=== PATIENT | male | born 1960 | race Hispanic/Latino ===

== ENCOUNTER 2021-01-11 17:38 | Inpatient (IN) | payer OTHER ==
[2021-01-11 18:27] LABS: ALT (SGPT) 39 U/L (8-55); Albumin 3.5 g/dL (3.5-5.0); Alkaline Phosphatase 83 U/L (40-110); Anion Gap 21 mmol/L (10-20); BUN (Urea Nitrogen) 40 mg/dL (8.4-25.7); Bilirubin, Total 1.1 mg/dL (0.2-1.2); Calc. Creatinine Clearance 0 mL/min (70-130); Calcium 7.6 mg/dL (7.8-10.44); Carbon Dioxide 19 mmol/L (22-29); Chloride 94 mmol/L (98-107); Globulin 2.9 g/dL (2.4-3.5); Glucose 132 mg/dL (70-105); Hemoglobin 14.9 g/dL (13.5-17.5); Mean Corpuscular HGB CONC 34.7 g/dL (32.0-36.0); Mean Corpuscular Hemoglobin 28.4 pg (27.0-33.0); Mean Corpuscular Volume 81.9 fl (81.2-95.1); Mean Platelet Volume 11.7 fl (7.4-10.4); Platelet Count 156 10x3/uL (150-450); Potassium 4.1 mmol/L (3.5-5.1); Protein, Total 6.4 g/dL (6.0-8.3); RBC Distribution Width 12.6 % (11.5-14.5); Red Blood Cell (RBC) Count 5.24 10x6/uL (4.32-5.72); Sodium 130 mmol/L (136-145); White Blood Cell (WBC) Count 1.4 10x3/uL (3.5-10.5)
[2021-01-11] MEDS ORDERED: Ventolin HFA Inhaler 60 PUFF INHALER ONE (18:38)
[2021-01-11 18:39] LABS: AST (SGOT) 68 U/L (5-34)
[2021-01-11 19:51] LABS: Band 12 % (5-11); Lymphocytes 25 % (21-51); Monocytes 4 % (0-10); Reactive Lymphocytes 2 % (0-10)
[2021-01-11 19:52] LABS: Neutrophil 57 % (42-75)
[2021-01-11 19:53] LABS: Dohle Bodies SLIGHT; Toxic Granulation SLIGHT; Vacuoles SLIGHT
[2021-01-11 19:54] LABS: Platelet Morphology Comment Appears Adequate; RBC Morphology Normal; Reflex for Review?? YES
[2021-01-11 20:12] LABS: ALT (SGPT) 35 U/L (8-55); AST (SGOT) 58 U/L (5-34); Albumin 3.3 g/dL (3.5-5.0); Alkaline Phosphatase 76 U/L (40-110); Anion Gap 17 mmol/L (10-20); BUN (Urea Nitrogen) 40 mg/dL (8.4-25.7); Bilirubin, Total 1.1 mg/dL (0.2-1.2); Calc. Creatinine Clearance 0 mL/min (70-130); Calcium 8.2 mg/dL (7.8-10.44); Carbon Dioxide 20 mmol/L (22-29); Chloride 92 mmol/L (98-107); Globulin 3.4 g/dL (2.4-3.5); Glucose 118 mg/dL (70-105); Potassium 3.2 mmol/L (3.5-5.1); Protein, Total 6.7 g/dL (6.0-8.3); Sodium 126 mmol/L (136-145)
[2021-01-11] MEDS ORDERED: Guaifenesin DM 100-10/5 ML UDCUP PO PRN (20:23)
[2021-01-11] MEDS ORDERED: Dextrose 50% Abboject 50 ML SYRINGE SLOW IVP PRN (20:23)
[2021-01-11] MEDS ORDERED: Acetaminophen 325 MG TAB PO PRN (20:23)
[2021-01-11] MEDS ORDERED: Dextrose 5% in Water 1,000 ML IV PRN (20:23)
[2021-01-11] MEDS ORDERED: Dexamethasone 4 mg/ml Vial SLOW IVP SCH (20:30)
[2021-01-11] MEDS ORDERED: Sodium Chloride 0.9% 1,000 ML IV SCH (20:45)
[2021-01-11 21:24] LABS: Lactic Acid 3.7 mmol/L (0.5-2.2)
[2021-01-11] MEDS ORDERED: Potassium Chloride 20 MEQ TAB PO SCH (22:45)
[2021-01-11 22:57] LABS: Lactic Acid 3.8 mmol/L (0.5-2.2)
[2021-01-11] MEDS ORDERED: Cefepime 1 GM in Sodium Chloride 0.9% 100 ML IVPB SCH (23:45)
[2021-01-12] MEDS: Nicotine 21 MG PATCH TD SCH ×2 (01:10→21:53)
[2021-01-12] MEDS: Lantus 1000 UNITS/10 ML VIAL SC SCH ×2 (01:10→21:52)
[2021-01-12] MEDS: Sodium Chloride 0.9% 1,000 ML IV SCH ×3 (01:11→22:45)
[2021-01-12 05:27] LABS: Lactic Acid 5.2 mmol/L (0.5-2.2)
[2021-01-12] MEDS ORDERED: guaiFENesin/Codeine 200 mg/20 mg 10 ml Cup PO PRN (05:36)
[2021-01-12 05:37] LABS: ALT (SGPT) 40 U/L (8-55); AST (SGOT) 71 U/L (5-34); Albumin 3.5 g/dL (3.5-5.0); Alkaline Phosphatase 77 U/L (40-110); Anion Gap 20 mmol/L (10-20); BUN (Urea Nitrogen) 35 mg/dL (8.4-25.7); Bilirubin, Total 1.4 mg/dL (0.2-1.2); Calc. Creatinine Clearance 0 mL/min (70-130); Calcium 8.7 mg/dL (7.8-10.44); Carbon Dioxide 21 mmol/L (22-29); Chloride 96 mmol/L (98-107); Globulin 3.7 g/dL (2.4-3.5); Glucose 153 mg/dL (70-105); Protein, Total 7.2 g/dL (6.0-8.3); Sodium 132 mmol/L (136-145)
[2021-01-12 05:40] LABS: CRP (Inflammatory) 35.28 mg/dL (= or < 0.5)
[2021-01-12] MEDS ORDERED: Morphine 4 MG/ML VIAL SLOW IVP SCH (05:45)
[2021-01-12] MEDS ORDERED: Piperacillin/Tazobactam 3.375 GM in Sodium Chloride 0.9% 100 ML IVPB SCH ×3 (05:45→10:00)
[2021-01-12] MEDS: guaiFENesin/Codeine Phosphate 100 mg/10 mg 5 ml UD Cup PO PRN ×2 (07:08→14:32)
[2021-01-12 08:10] LABS: Hemoglobin 14.8 g/dL (13.5-17.5); Mean Corpuscular HGB CONC 33.9 g/dL (32.0-36.0); Mean Corpuscular Hemoglobin 27.9 pg (27.0-33.0); Mean Corpuscular Volume 82.5 fl (81.2-95.1); Platelet Count 165 10x3/uL (150-450); RBC Distribution Width 12.8 % (11.5-14.5); White Blood Cell (WBC) Count 2.2 10x3/uL (3.5-10.5)
[2021-01-12 08:11] LABS: MDiff Complete? YES
[2021-01-12] MEDS: Cholecalciferol 1,000 UNITS (25 MCG) TAB PO SCH (08:17)
[2021-01-12] MEDS: Enoxaparin Sodium 40 MG/0.4 ML SYRINGE SC SCH ×2 (08:17→21:52)
[2021-01-12] MEDS: Ascorbic Acid 500 mg Chewable Tablet PO SCH (08:17)
[2021-01-12] MEDS: Aspirin 81 mg Enteric Coated Tablet PO SCH (08:17)
[2021-01-12] MEDS: Zinc Gluconate 50 MG TAB PO SCH (08:17)
[2021-01-12 08:18] LABS: Band 36 % (5-11); Lymphocytes 15 % (21-51); Monocytes 9 % (0-10); Neutrophil 38 % (42-75); Reactive Lymphocytes 2 % (0-10)
[2021-01-12 08:19] LABS: Platelet Morphology Comment Appears Adequate
[2021-01-12 08:23] LABS: Dohle Bodies SLIGHT; RBC Morphology Normal; Toxic Granulation SLIGHT
[2021-01-12 08:58] VITALS: BMI 28.0
[2021-01-12] MEDS ORDERED: Enoxaparin Sodium 40 MG/0.4 ML SYRINGE SC SCH (09:00)
[2021-01-12 11:28] LABS: Anion Gap 19 mmol/L (10-20); BUN (Urea Nitrogen) 29 mg/dL (8.4-25.7); Calc. Creatinine Clearance 71 mL/min (70-130); Calcium 8.6 mg/dL (7.8-10.44); Carbon Dioxide 17 mmol/L (22-29); Chloride 97 mmol/L (98-107); Glucose 233 mg/dL (70-105); Potassium 3.5 mmol/L (3.5-5.1); Sodium 129 mmol/L (136-145)
[2021-01-12 11:38] LABS: Lactic Acid 5.7 mmol/L (0.5-2.2)
[2021-01-12] MEDS ORDERED: Sodium Chloride 0.9% 500 ML IV SCH (14:00)
[2021-01-12] MEDS ORDERED: Sodium Chloride 0.9% 1,000 ML IV SCH (15:00)
[2021-01-12] MEDS: HYDROcodone/Acetaminophen 5/325 mg Tablet PO PRN ×2 (17:32→23:19)
[2021-01-12] MEDS: cefTRIAXone\\ROCEPHIN 2 GM in Sodium Chloride 0.9% 100 ML IVPB SCH (17:32)
[2021-01-12] MEDS: Benzonatate 100 MG CAP PO PRN ×2 (17:32→23:19)
[2021-01-12 17:45] LABS: Lactic Acid 2.5 mmol/L (0.5-2.2)
[2021-01-12 20:18] LABS: SARS-CoV-2 IgG Ab Reactive (NonReactive); SARS-CoV-2 IgG Index 3.55 S/CO (< 1.40)
[2021-01-12 20:48] LABS: Bilirubin Neg (Negative); Blood, Urine 50 (Negative); Clarity Clear (Clear); Glucose, Urine (Dipstick) 250 mg/dL (Negative); Ketone, Urine Negative (Negative); Leukocyte Negative (Negative); Nitrite Negative (Negative); Protein, Urine (Dipstick) 100 mg/dl (Neg-Trace); pH, Urine 6.5 (5.0-9.0)
[2021-01-12] MEDS ORDERED: Dexamethasone 4 mg/ml Vial SLOW IVP SCH ×2 (21:00)
[2021-01-12 21:01] LABS: Bacteria/HPF 1+ HPF (None Seen); Mucous/LPF 1+ LPF (<2+); RBC/HPF 0-3 HPF (0-3); Squamous Epithelial 0-3 HPF (0-3); WBC/HPF 0-3 HPF (0-3)
[2021-01-12 21:13] LABS: Legionella Urinary Ag Negative (Negative); Strep pneumo Urine Ag POSITIVE (NEGATIVE)
[2021-01-12] MEDS: HumaLOG 300 UNITS/3 ML VIAL SC PRN (22:10)
[2021-01-13 04:19] LABS: Anion Gap 14 mmol/L (10-20); BUN (Urea Nitrogen) 26 mg/dL (8.4-25.7); CRP (Inflammatory) 27.24 mg/dL (= or < 0.5); Calc. Creatinine Clearance 106 mL/min (70-130); Calcium 8.6 mg/dL (7.8-10.44); Carbon Dioxide 19 mmol/L (22-29); Chloride 102 mmol/L (98-107); Glucose 190 mg/dL (70-105); Potassium 3.4 mmol/L (3.5-5.1); Sodium 132 mmol/L (136-145)
[2021-01-13 05:02] LABS: HIV (1/2) Antibody/Antigen Non-Reactive (NonReactive); HIV 1/2 INDEX 0.06 S/CO (<1.00)
[2021-01-13] MEDS: Sodium Chloride 0.9% 1,000 ML IV SCH ×2 (05:32→17:04)
[2021-01-13] MEDS: HYDROcodone/Acetaminophen 5/325 mg Tablet PO PRN ×2 (06:27→11:45)
[2021-01-13] MEDS: Benzonatate 100 MG CAP PO PRN ×3 (06:27→21:28)
[2021-01-13 07:42] LABS: Hemoglobin 13.3 g/dL (13.5-17.5); Mean Corpuscular HGB CONC 34.3 g/dL (32.0-36.0); Mean Corpuscular Hemoglobin 28.2 pg (27.0-33.0); Mean Corpuscular Volume 82.2 fl (81.2-95.1); Mean Platelet Volume 11.3 fl (7.4-10.4); Platelet Count 151 10x3/uL (150-450); Red Blood Cell (RBC) Count 4.72 10x6/uL (4.32-5.72); White Blood Cell (WBC) Count 7.8 10x3/uL (3.5-10.5)
[2021-01-13] MEDS: Ascorbic Acid 500 mg Chewable Tablet PO SCH (08:19)
[2021-01-13] MEDS: Cholecalciferol 1,000 UNITS (25 MCG) TAB PO SCH (08:19)
[2021-01-13] MEDS: Aspirin 81 mg Enteric Coated Tablet PO SCH (08:20)
[2021-01-13] MEDS: Enoxaparin Sodium 40 MG/0.4 ML SYRINGE SC SCH ×2 (08:20→21:28)
[2021-01-13] MEDS: Zinc Gluconate 50 MG TAB PO SCH (08:20)
[2021-01-13 08:28] LABS: MDiff Complete? YES
[2021-01-13 08:43] LABS: Band 29 % (5-11); Lymphocytes 7 % (21-51); Monocytes 2 % (0-10); Neutrophil 62 % (42-75)
[2021-01-13 08:46] LABS: Platelet Morphology Comment Appears Adequate
[2021-01-13 09:22] LABS: MDiff Complete? YES
[2021-01-13] MEDS: HumaLOG 300 UNITS/3 ML VIAL SC PRN (12:18)
[2021-01-13] MEDS: cefTRIAXone\\ROCEPHIN 2 GM in Sodium Chloride 0.9% 100 ML IVPB SCH (17:04)
[2021-01-13] MEDS: Calcium Carbonate 500 MG ChewTAB PO PRN ×2 (17:05→21:28)
[2021-01-13] MEDS: HYDROcodone/Acetaminophen 10/325 mg Tablet PO PRN ×2 (17:05→21:28)
[2021-01-13 17:37] LABS: SARS-CoV-2 PCR by NAA DETECTED (NotDetected)
[2021-01-13] MEDS: Nicotine 21 MG PATCH TD SCH (21:40)
[2021-01-13] MEDS: Lantus 1000 UNITS/10 ML VIAL SC SCH (21:50)
[2021-01-14] MEDS: Sodium Chloride 0.9% 1,000 ML IV SCH ×2 (00:53→08:05)
[2021-01-14] MEDS: HumaLOG 300 UNITS/3 ML VIAL SC PRN (01:06)
[2021-01-14] MEDS: Calcium Carbonate 500 MG ChewTAB PO PRN (02:57)
[2021-01-14] MEDS: HYDROcodone/Acetaminophen 10/325 mg Tablet PO PRN ×4 (02:57→21:28)
[2021-01-14 05:22] LABS: Mean Corpuscular HGB CONC 34.4 g/dL (32.0-36.0); Mean Corpuscular Hemoglobin 28.3 pg (27.0-33.0); Mean Corpuscular Volume 82.2 fl (81.2-95.1); Mean Platelet Volume 11.2 fl (7.4-10.4); Platelet Count 158 10x3/uL (150-450); RBC Distribution Width 13.1 % (11.5-14.5); White Blood Cell (WBC) Count 9.5 10x3/uL (3.5-10.5)
[2021-01-14 05:30] LABS: Anion Gap 10 mmol/L (10-20); BUN (Urea Nitrogen) 19 mg/dL (8.4-25.7); Calc. Creatinine Clearance 117 mL/min (70-130); Calcium 8.4 mg/dL (7.8-10.44); Carbon Dioxide 23 mmol/L (22-29); Chloride 101 mmol/L (98-107); Glucose 111 mg/dL (70-105); Potassium 3.2 mmol/L (3.5-5.1); Sodium 131 mmol/L (136-145)
[2021-01-14 06:58] LABS: MDiff Complete? YES
[2021-01-14 07:19] LABS: Band 14 % (5-11); Lymphocytes 8 % (21-51); Monocytes 3 % (0-10); Neutrophil 62 % (42-75); Reactive Lymphocytes 13 % (0-10)
[2021-01-14] MEDS: Ascorbic Acid 500 mg Chewable Tablet PO SCH (08:04)
[2021-01-14] MEDS: Enoxaparin Sodium 40 MG/0.4 ML SYRINGE SC SCH ×2 (08:04→21:29)
[2021-01-14] MEDS: Aspirin 81 mg Enteric Coated Tablet PO SCH (08:04)
[2021-01-14] MEDS: Cholecalciferol 1,000 UNITS (25 MCG) TAB PO SCH (08:04)
[2021-01-14] MEDS: Zinc Gluconate 50 MG TAB PO SCH (08:05)
[2021-01-14] MEDS ORDERED: Electrolyte Replacement Protocol 1 EACH FS SCH (15:00)
[2021-01-14 15:49] LABS: Magnesium 1.3 mg/dL (1.6-2.6)
[2021-01-14] MEDS ORDERED: Potassium Chloride 20 MEQ TAB PO SCH (16:15)
[2021-01-14] MEDS: Magnesium 2 GM/50 ML 2 GM in Premix Bag 1 BAG IVPB SCH ×2 (17:20→18:13)
[2021-01-14] MEDS: Benzonatate 100 MG CAP PO PRN (17:20)
[2021-01-14] MEDS: cefTRIAXone\\ROCEPHIN 2 GM in Sodium Chloride 0.9% 100 ML IVPB SCH (17:20)
[2021-01-14] MEDS: Nicotine 21 MG PATCH TD SCH (21:21)
[2021-01-14] MEDS: traZODone HCl 50 MG TAB PO SCH (21:29)
[2021-01-14] MEDS: Lantus 1000 UNITS/10 ML VIAL SC SCH (21:31)
[2021-01-14 23:23] LABS: Potassium 3.6 mmol/L (3.5-5.1)
[2021-01-15] MEDS: Benzonatate 100 MG CAP PO PRN ×3 (00:24→20:02)
[2021-01-15] MEDS: HYDROcodone/Acetaminophen 10/325 mg Tablet PO PRN ×4 (01:15→13:53)
[2021-01-15 07:26] LABS: Mean Corpuscular HGB CONC 34.6 g/dL (32.0-36.0); Mean Corpuscular Hemoglobin 28.3 pg (27.0-33.0); Mean Corpuscular Volume 81.8 fl (81.2-95.1); Mean Platelet Volume 11.4 fl (7.4-10.4); Platelet Count 168 10x3/uL (150-450); RBC Distribution Width 13.3 % (11.5-14.5); Red Blood Cell (RBC) Count 4.95 10x6/uL (4.32-5.72); White Blood Cell (WBC) Count 14.9 10x3/uL (3.5-10.5)
[2021-01-15 07:45] LABS: Anion Gap 16 mmol/L (10-20); BUN (Urea Nitrogen) 14 mg/dL (8.4-25.7); Calc. Creatinine Clearance 124 mL/min (70-130); Calcium 8.7 mg/dL (7.8-10.44); Carbon Dioxide 21 mmol/L (22-29); Chloride 97 mmol/L (98-107); Glucose 114 mg/dL (70-105); Magnesium 1.3 mg/dL (1.6-2.6); Potassium 3.5 mmol/L (3.5-5.1); Sodium 130 mmol/L (136-145)
[2021-01-15 07:54] LABS: Lactic Acid 1.4 mmol/L (0.5-2.2)
[2021-01-15] MEDS: Ascorbic Acid 500 mg Chewable Tablet PO SCH (08:39)
[2021-01-15] MEDS: Aspirin 81 mg Enteric Coated Tablet PO SCH (08:39)
[2021-01-15] MEDS: Cholecalciferol 1,000 UNITS (25 MCG) TAB PO SCH (08:39)
[2021-01-15] MEDS: Enoxaparin Sodium 40 MG/0.4 ML SYRINGE SC SCH ×2 (08:40→20:02)
[2021-01-15] MEDS: Zinc Gluconate 50 MG TAB PO SCH (08:40)
[2021-01-15 09:00] LABS: Band 4 % (5-11); Lymphocytes 11 % (21-51); Monocytes 2 % (0-10); Myelocyte 3 % (0-0); Neutrophil 79 % (42-75); Reactive Lymphocytes 1 % (0-10)
[2021-01-15] MEDS ORDERED: Potassium Chloride 20 MEQ TAB PO SCH (09:00)
[2021-01-15 09:01] LABS: MDiff Complete? YES; Platelet Morphology Comment Appears Adequate; RBC Morphology Normal
[2021-01-15] MEDS: Magnesium 2 GM/50 ML 2 GM in Premix Bag 1 BAG IVPB SCH ×2 (09:09→10:44)
[2021-01-15] MEDS ORDERED: Dexamethasone 20 MG/5 ML VIAL SLOW IVP SCH (10:00)
[2021-01-15] MEDS: cefTRIAXone\\ROCEPHIN 2 GM in Sodium Chloride 0.9% 100 ML IVPB SCH (16:25)
[2021-01-15] MEDS: HumaLOG 300 UNITS/3 ML VIAL SC PRN ×2 (16:57→20:43)
[2021-01-15] MEDS ORDERED: Milk Of Magnesia 30 ML UDCUP PO PRN (17:16)
[2021-01-15] MEDS: LISDEXAMFETAMINE DIMESYLATE 30 MG PO SCH ×2 (19:45→19:46)
[2021-01-15] MEDS: HYDROcodone/Acetaminophen 5/325 mg Tablet PO PRN (20:01)
[2021-01-15] MEDS: traZODone HCl 50 MG TAB PO SCH (20:02)
[2021-01-15] MEDS: Lantus 1000 UNITS/10 ML VIAL SC SCH (20:43)
[2021-01-15] MEDS: Nicotine 21 MG PATCH TD SCH (22:32)
[2021-01-16] MEDS: HYDROcodone/Acetaminophen 5/325 mg Tablet PO PRN ×4 (01:34→20:52)
[2021-01-16] MEDS: Benzonatate 100 MG CAP PO PRN ×3 (01:34→16:59)
[2021-01-16] MEDS: Ventolin HFA Inhaler 60 PUFF INHALER INH PRN ×2 (02:00→08:06)
[2021-01-16] MEDS: HumaLOG 300 UNITS/3 ML VIAL SC PRN ×5 (05:45→22:29)
[2021-01-16 06:23] LABS: Hemoglobin 14.7 g/dL (13.5-17.5); Mean Corpuscular HGB CONC 34.5 g/dL (32.0-36.0); Mean Corpuscular Hemoglobin 28.6 pg (27.0-33.0); Mean Corpuscular Volume 82.9 fl (81.2-95.1); Mean Platelet Volume 12.1 fl (7.4-10.4); Platelet Count 183 10x3/uL (150-450); RBC Distribution Width 14.3 % (11.5-14.5); Red Blood Cell (RBC) Count 5.14 10x6/uL (4.32-5.72); White Blood Cell (WBC) Count 15.6 10x3/uL (3.5-10.5)
[2021-01-16 06:58] LABS: MDiff Complete? YES
[2021-01-16 07:01] LABS: Band 6 % (5-11); Lymphocytes 7 % (21-51); Monocytes 7 % (0-10); Neutrophil 76 % (42-75); Reactive Lymphocytes 4 % (0-10)
[2021-01-16 07:04] LABS: Anion Gap 17 mmol/L (10-20); BUN (Urea Nitrogen) 21 mg/dL (8.4-25.7); Calc. Creatinine Clearance 112 mL/min (70-130); Calcium 9.2 mg/dL (7.8-10.44); Carbon Dioxide 17 mmol/L (22-29); Chloride 100 mmol/L (98-107); Glucose 301 mg/dL (70-105); Magnesium 1.6 mg/dL (1.6-2.6); Platelet Morphology Comment Appears Adequate; Potassium 3.9 mmol/L (3.5-5.1); RBC Morphology Normal; Sodium 130 mmol/L (136-145)
[2021-01-16] MEDS ORDERED: Magnesium 2 GM/50 ML 2 GM in Premix Bag 1 BAG IVPB SCH (08:30)
[2021-01-16] MEDS: Ascorbic Acid 500 mg Chewable Tablet PO SCH (08:47)
[2021-01-16] MEDS: Dexamethasone 20 MG/5 ML VIAL SLOW IVP SCH (08:47)
[2021-01-16] MEDS: Zinc Gluconate 50 MG TAB PO SCH (08:47)
[2021-01-16] MEDS: AMPHETAMINE DEXTROAMPHETAMINE PO SCH (08:48)
[2021-01-16] MEDS: Polyethylene Glycol 3350 17 GM Packet PO SCH (08:48)
[2021-01-16] MEDS: Cholecalciferol 1,000 UNITS (25 MCG) TAB PO SCH (08:48)
[2021-01-16] MEDS: Aspirin 81 mg Enteric Coated Tablet PO SCH (08:48)
[2021-01-16] MEDS: Enoxaparin Sodium 40 MG/0.4 ML SYRINGE SC SCH ×2 (08:48→20:50)
[2021-01-16] MEDS: VYVANSE 30 MG PO SCH (08:48)
[2021-01-16] MEDS ORDERED: AMPHETAMINE PO SCH (09:00)
[2021-01-16] MEDS ORDERED: [UNRECOGNIZED DRUG - OTHER] PO SCH (09:00)
[2021-01-16] MEDS ORDERED: DEXTROAMPHETAMINE PO SCH (09:00)
[2021-01-16] MEDS ORDERED: Furosemide 20 MG/2 ML VIAL SLOW IVP SCH (10:45)
[2021-01-16] MEDS ORDERED: Lantus 1000 UNITS/10 ML VIAL SC SCH ×3 (11:00→22:15)
[2021-01-16] MEDS: cefTRIAXone\\ROCEPHIN 2 GM in Sodium Chloride 0.9% 100 ML IVPB SCH (17:00)
[2021-01-16] MEDS ORDERED: Furosemide 20 MG/2 ML VIAL SLOW IVP PRN (17:42)
[2021-01-16] MEDS: Nicotine 21 MG PATCH TD SCH (20:43)
[2021-01-16] MEDS: traZODone HCl 50 MG TAB PO SCH (20:51)
[2021-01-16] MEDS: Lantus 1000 UNITS/10 ML VIAL SC SCH ×2 (20:53→22:31)
[2021-01-17] MEDS: Benzonatate 100 MG CAP PO PRN ×3 (00:38→21:54)
[2021-01-17] MEDS: Calcium Carbonate 500 MG ChewTAB PO PRN (00:47)
[2021-01-17 05:16] LABS: Anion Gap 13 mmol/L (10-20); BUN (Urea Nitrogen) 20 mg/dL (8.4-25.7); Calc. Creatinine Clearance 114 mL/min (70-130); Calcium 8.5 mg/dL (7.8-10.44); Carbon Dioxide 24 mmol/L (22-29); Chloride 100 mmol/L (98-107); Glucose 305 mg/dL (70-105); Magnesium 1.5 mg/dL (1.6-2.6); Potassium 3.2 mmol/L (3.5-5.1); Sodium 134 mmol/L (136-145)
[2021-01-17 05:25] LABS: Hemoglobin 13.4 g/dL (13.5-17.5); Mean Corpuscular HGB CONC 34.8 g/dL (32.0-36.0); Mean Corpuscular Hemoglobin 28.2 pg (27.0-33.0); Mean Corpuscular Volume 81.1 fl (81.2-95.1); Mean Platelet Volume 11.5 fl (7.4-10.4); Platelet Count 239 10x3/uL (150-450); RBC Distribution Width 13.2 % (11.5-14.5); Red Blood Cell (RBC) Count 4.75 10x6/uL (4.32-5.72); White Blood Cell (WBC) Count 11.4 10x3/uL (3.5-10.5)
[2021-01-17] MEDS ORDERED: Magnesium 2 GM/50 ML 2 GM in Premix Bag 1 BAG IVPB SCH (05:30)
[2021-01-17] MEDS: HumaLOG 300 UNITS/3 ML VIAL SC PRN ×3 (05:30→21:54)
[2021-01-17] MEDS ORDERED: Potassium Chloride 20 MEQ TAB PO SCH (05:30)
[2021-01-17 06:04] LABS: MDiff Complete? YES
[2021-01-17 06:06] LABS: Band 5 % (5-11); Lymphocytes 13 % (21-51); Monocytes 6 % (0-10); Neutrophil 69 % (42-75); Reactive Lymphocytes 7 % (0-10)
[2021-01-17] MEDS ORDERED: HumaLOG 300 UNITS/3 ML VIAL SC PRN (07:13)
[2021-01-17] MEDS: Cholecalciferol 1,000 UNITS (25 MCG) TAB PO SCH (08:23)
[2021-01-17] MEDS: Aspirin 81 mg Enteric Coated Tablet PO SCH (08:23)
[2021-01-17] MEDS: Zinc Gluconate 50 MG TAB PO SCH (08:23)
[2021-01-17] MEDS: Polyethylene Glycol 3350 17 GM Packet PO SCH (08:24)
[2021-01-17] MEDS: Ascorbic Acid 500 mg Chewable Tablet PO SCH (08:24)
[2021-01-17] MEDS: VYVANSE 30 MG PO SCH (08:24)
[2021-01-17] MEDS: AMPHETAMINE DEXTROAMPHETAMINE PO SCH (08:24)
[2021-01-17] MEDS: Dexamethasone 20 MG/5 ML VIAL SLOW IVP SCH (08:24)
[2021-01-17] MEDS: Enoxaparin Sodium 40 MG/0.4 ML SYRINGE SC SCH ×2 (08:24→20:48)
[2021-01-17] MEDS ORDERED: Lantus 1000 UNITS/10 ML VIAL SC SCH ×3 (09:00→21:00)
[2021-01-17] MEDS: cefTRIAXone\\ROCEPHIN 2 GM in Sodium Chloride 0.9% 100 ML IVPB SCH (18:08)
[2021-01-17] MEDS: HYDROcodone/Acetaminophen 5/325 mg Tablet PO PRN (18:09)
[2021-01-17] MEDS: Nicotine 21 MG PATCH TD SCH (20:49)
[2021-01-17] MEDS: Lantus 1000 UNITS/10 ML VIAL SC SCH (21:53)
[2021-01-18] MEDS: Benzonatate 100 MG CAP PO PRN (00:57)
[2021-01-18] MEDS ORDERED: Promethazine 25 MG TAB PO SCH (03:00)
[2021-01-18] MEDS ORDERED: GUAIFENESIN SF SOLN 200 MG/10 ML UDCUP PO SCH (03:00)
[2021-01-18 05:50] VITALS: TEMP 97.6
[2021-01-18 06:18] LABS: Magnesium 1.3 mg/dL (1.6-2.6)
[2021-01-18] MEDS ORDERED: Magnesium 2 GM/50 ML 2 GM in Premix Bag 1 BAG IVPB SCH (08:00)
[2021-01-18 08:39] LABS: #Basophils 0.1 10x3/uL (0.0-0.2); #Eosinphils 0.1 10x3/uL (0.0-0.5); #Monocytes 0.3 10x3/uL (0.0-1.1); #Neutrophils 12.1 10x3/uL (1.5-8.4); %Basophils 0.4 % (0.0-2.0); %Eosinophils 0.5 % (0.0-6.0); %Lymphocytes 15.5 % (18.0-47.0); %Neutrophils 78.1 % (40.0-75.0); Hemoglobin 14.8 g/dL (13.5-17.5); Mean Corpuscular HGB CONC 34.7 g/dL (32.0-36.0); Mean Corpuscular Hemoglobin 28.1 pg (27.0-33.0); Mean Platelet Volume 10.7 fl (7.4-10.4); Platelet Count 334 10x3/uL (150-450); RBC Distribution Width 13.6 % (11.5-14.5); Red Blood Cell (RBC) Count 5.27 10x6/uL (4.32-5.72); White Blood Cell (WBC) Count 15.6 10x3/uL (3.5-10.5)
[2021-01-18 09:03] LABS: ALT (SGPT) 72 U/L (8-55); AST (SGOT) 72 U/L (5-34); Albumin 3.3 g/dL (3.5-5.0); Alkaline Phosphatase 96 U/L (40-110); Anion Gap 14 mmol/L (10-20); BUN (Urea Nitrogen) 14 mg/dL (8.4-25.7); Bilirubin, Total 0.8 mg/dL (0.2-1.2); Calc. Creatinine Clearance 123 mL/min (70-130); Calcium 8.9 mg/dL (7.8-10.44); Carbon Dioxide 24 mmol/L (22-29); Chloride 99 mmol/L (98-107); Globulin 3.8 g/dL (2.4-3.5); Glucose 117 mg/dL (70-105); Potassium 3.6 mmol/L (3.5-5.1); Protein, Total 7.1 g/dL (6.0-8.3); Sodium 133 mmol/L (136-145)
[2021-01-18] MEDS: Zinc Gluconate 50 MG TAB PO SCH (09:12)
[2021-01-18] MEDS: Ascorbic Acid 500 mg Chewable Tablet PO SCH (09:12)
[2021-01-18] MEDS: Cholecalciferol 1,000 UNITS (25 MCG) TAB PO SCH (09:12)
[2021-01-18] MEDS: Dexamethasone 20 MG/5 ML VIAL SLOW IVP SCH (09:13)
[2021-01-18] MEDS: VYVANSE 30 MG PO SCH (09:13)
[2021-01-18] MEDS: Enoxaparin Sodium 40 MG/0.4 ML SYRINGE SC SCH (09:13)
[2021-01-18] MEDS: Polyethylene Glycol 3350 17 GM Packet PO SCH (09:13)
[2021-01-18] MEDS: Aspirin 81 mg Enteric Coated Tablet PO SCH (09:13)
[2021-01-18] MEDS: AMPHETAMINE DEXTROAMPHETAMINE PO SCH (09:14)
[2021-01-18] MEDS: Lantus 1000 UNITS/10 ML VIAL SC SCH (09:18)
[2021-01-18 10:13] VITALS: BP 131/76
== END 2021-01-18 14:30 | disposition home or self-care (01) | DRG 871 ==
LOC: CSHERS 17:38 → CSHTELE 17:39
PROVIDERS: ADMIT Student in an Organized Health Care Education/Training Program; ATTEND Family Medicine
PROC: 8E0ZXY6 Isolation (ICD-10-PCS; principal; 2021-01-11)
PROC: 3E0333Z Introduction of Anti-inflammatory into Peripheral Vein, Percutaneous Approach (ICD-10-PCS; 2021-01-11)
DX: A40.3 Sepsis due to Streptococcus pneumoniae (principal); J96.01 Acute respiratory failure with hypoxia; J12.82 Pneumonia due to coronavirus disease 2019; U07.1 COVID-19; R65.20 Severe sepsis without septic shock; J13 Pneumonia due to Streptococcus pneumoniae; R44.3 Hallucinations, unspecified; N17.9 Acute kidney failure, unspecified; E87.1 Hypo-osmolality and hyponatremia; R31.9 Hematuria, unspecified; K22.4 Dyskinesia of esophagus; F90.9 Attention-deficit hyperactivity disorder, unspecified type; E86.0 Dehydration; E87.6 Hypokalemia; E83.42 Hypomagnesemia; K59.00 Constipation, unspecified; F17.210 Nicotine dependence, cigarettes, uncomplicated; E11.65 Type 2 diabetes mellitus with hyperglycemia; Z79.4 Long term (current) use of insulin; Z90.49 Acquired absence of other specified parts of digestive tract
CPT/HCPCS: 36415; 36416; 70450; 71045; 71275; 80048; 80053; 81001; 82728; 83605; 83735; 83880; 84100; 84145; 84484; 85025; 85060; 85379; 86140; 86769; 87040; 87077; 87149; 87186; 87389; 87449; 87899; 93005; 94760; 94762; 96365; J0692; J0696; J1100; J1650; J1815; J1940; J1956; J2270; J2543; J3475; J3490; J7050; Q0169; U0003; U0005